=== PATIENT | female | born 1945 | race African-American/Black ===

== ENCOUNTER → 2019-01-11 | Day surgery (SDC) | payer MEDICARE, OTHER ==
[2019-01-07 13:30] LABS: BASOPHILS % 0.5 % (0.0-1.0); EOSINOPHILS # (AUTO) 0.1 (0.0-0.4); EOSINOPHILS % 2.1 % (0.0-6.0); HEMATOCRIT 35.2 % (34.2-44.1); HEMOGLOBIN 10.9 g/dL (12.0-16.0); LYMPHOCYTES # (AUTO) 2.4 (1.0-3.2); LYMPHOCYTES % 40.8 % (18.0-39.1); MEAN CORPUSCULAR HEMOGLOBIN 26.4 pg (28-32); MEAN CORPUSCULAR VOLUME 85.2 fL (81-99); MONOCYTES # (AUTO) 0.6 (0.2-0.8); MONOCYTES % 10.2 % (4.4-11.3); NEUTROPHILS # (AUTO) 2.7 (2.1-6.9); NEUTROPHILS % 46.2 % (38.7-80.0); PLATELET COUNT 195 x10e3/uL (140-360); RED BLOOD COUNT 4.13 x10e6/uL (3.6-5.1); RED CELL DISTRIBUTION WIDTH 16.5 % (11.7-14.4)
[2019-01-07 13:40] LABS: INR 0.9; PROTHROMBIN TIME 12.6 seconds (11.9-14.5)
[2019-01-07 13:41] LABS: PARTIAL THROMBOPLASTIN TIME 27.1 seconds (23.8-35.5)
[2019-01-07 13:48] LABS: ALANINE AMINOTRANSFERASE 6 IU/L (0-55); ALBUMIN 3.7 g/dL (3.5-5.0); ALBUMIN/GLOBULIN RATIO 0.9 (0.8-2.0); ALKALINE PHOSPHATASE 78 IU/L (40-150); ANION GAP 12.2 mmol/L (8-16); BLOOD UREA NITROGEN 15 mg/dL (7-26); BUN/CREATININE RATIO 17 (6-25); CALCIUM 9.7 mg/dL (8.4-10.2); CARBON DIOXIDE 25 mmol/L (22-29); CHLORIDE 105 mmol/L (98-107); CREATININE, SERUM 0.89 mg/dL (0.57-1.11); EST GLOMERULAR FILTRATION RATE > 60 ML/MIN (60-); GLUCOSE 87 mg/dL (74-118); POTASSIUM 4.2 mmol/L (3.5-5.1); SODIUM 138 mmol/L (136-145)
[~2019-01-11] MED LIST: GABAPENTIN800 MG PO; GLUCAGON FOR INJ 1 MG VIAL ONE; LIDOCAINE HCL 2% LOCAL INJ 5 ML SDV VIAL INJ ONE; LISINOPRIL10 MG PO; METOPROLOL SUCC50 MG PO; MORPHINE SULFAT30 M2 PO; MORPHINE SULFATE INJ 10 MG/ML ONE; NORCO 10-325 T1 EACH PO; PANTOPRAZOLE SO40 MG PO; PROMETHAZINE HC25 M1 PO; PROPOFOL IV EMULSION 10 MG/ML 50 ML VIAL ONE; ROPINIROLE HC0.25 MG PO; SEROQUEL25 MG PO; TIZANIDINE HCL4 MG PO; ZOLPIDEM TARTRA10 MG PO
--- OUTSIDE RECORDS SUMMARY | 2019-01-11 09:36 | XMS REPORT | Clinical Summary ---
Author Author YAN[facility] Address Unknown Phone Unavailable Care Team Providers Care Capture Manager Name Role Phone Дмитрий Ann PCP Edwin Ray Unavailable Allergies No Known Allergies Medications End Date Status Medication Sig Dispensed Refills Start Date Active gabapentin (NEURONTIN) Take 300 mg 0 300 MG capsule by mouth 2 (two) times daily. Active oxyCODONE (OXYCONTIN) 10 Take 15 mg by 0 MG 12 hr tablet mouth every 12 (twelve) hours . Active ondansetron (ZOFRAN-ODT) Take 1 tablet 20 tablet 0 4 MG disintegrating (4 mg total) 6 tablet by mouth every 4 (four) hours as needed for Nausea. Active sucralfate (CARAFATE) 100 QID FOR 3 420 mL 0 mg/mL suspension DAYS THEN PRN 6 GI UPSET. Active traMADol (ULTRAM) 50 mg Take 1 tablet 15 tablet 0 tablet (50 mg total) 7 by mouth every 6 (six) hours as needed. Max Daily Amount: 200 mg Active diclofenac 1 % Gel . 0 8 Active ketorolac (ACULAR) 0.5 % . 0 ophthalmic solution 8 Active VITAMIN D2 50,000 unit . 0 capsule 8 Active moxifloxacin (VIGAMOX) . 0 0.5 % ophthalmic solution 8 Active rOPINIRole (REQUIP) 0.25 . 0 MG tablet 8 Active tiZANidine (ZANAFLEX) 2 . 0 MG tablet 8 Active lactulose (CHRONULAC) 20 Take 30 mLs 200 mL 0 gram/30 mL solution (20 g total) 8 by mouth daily. 01/14/2018 Discontinued TiZANidine (ZANAFLEX) 2 Take 2 mg by 0 MG capsule mouth 3 (three) times daily. 01/14/2018 Discontinued promethazine (PHENERGAN) Take 25 mg by 0 25 MG tablet mouth every 6 (six) hours as needed for Nausea. 01/14/2018 Discontinued pregabalin (LYRICA) 75 MG 1 TABLET 3 0 capsule TIMES DAILY. 01/14/2018 Discontinued zolpidem (AMBIEN) 10 mg 1 TABLET AT 0 tablet BEDTIME NEEDED. 01/14/2018 Discontinued metoprolol (TOPROL-XL) 50 . 0 08/31/ MG 24 hr tablet 8 01/14/2018 Discontinued oxyCODONE (ROXICODONE) 15 . 0 09/25/201 MG immediate release 8 tablet 01/14/2018 Discontinued QUEtiapine (SEROQUEL) 100 . 0 201 MG tablet 8 01/14/2018 Discontinued naproxen (NAPROSYN) 500 Take 1 tablet 30 tablet 0 MG tablet (500 mg 8 total) by mouth 2 (two) times daily with breakfast and dinner. 02/14/2018 QUEtiapine (SEROQUEL) 100 Take 1 tablet 30 tablet 0 MG tablet (100 mg 8 total) by mouth daily for 30 days. 01/24/2018 aluminum & magnesium Take 30 mLs 355 mL 0 hydroxide-simethicone by mouth 8 (MAALOX PLUS) 400-400-40 every 6 (six) mg/5 mL suspension hours as needed for up to 10 days. 01/17/2018 cephalexin (KEFLEX) 500 Take 1 9 capsule 0 MG capsule capsule (500 8 mg total) by mouth every 8 (eight) hours for 3 days. 02/14/2018 pantoprazole (PROTONIX) Take 1 tablet 30 tablet 0 40 MG tablet (40 mg total) 8 by mouth daily for 30 days. 02/13/2018 zolpidem (AMBIEN) 5 MG Take 1 tablet 30 tablet 0 tablet (5 mg total) 8 by mouth every night as needed for Insomnia for up to 30 days. Max Daily Amount: 5 mg 02/13/2018 hydrALAZINE (APRESOLINE) Take 1 tablet 50 tablet 0 25 MG tablet (25 mg total) 8 by mouth every 8 (eight) hours as needed (for sbp >160) for up to 30 days. Active Problems Problem Noted Date Syncopal episodes 01/09/2018 Urinary tract infection 01/08/2018 Hematuria 01/08/2018 Febrile illness 01/08/2018 Gastrointestinal hemorrhage, unspecified gastrointestinal hemorrhage type 01/07/2018 Overview: Added automatically from request for surgery [id number] Near syncope 08/19/2015 Closed fracture of rib of left side 04/02/2015 Overview: UPDATED BY ICD10 SNOMED/IMO UPDATES Small bowel obstruction 12/22/2014 Speech abnormality 03/26/2013 Encounters Care Team Description Date Type Specialty Brinda Reynaga CRNA 01/13/2018 Anesthesia Event Crystal Fonseca MD COLONOSCOPY 01/13/2018 Surgery Jania Palm MD Lalani, Suleman, MD Generalized weakness (Primary Dx); Gastrointestinal hemorrhage, unspecified gastrointestinal hemorrhage type; Pyelonephritis; Gross hematuria; Febrile illness 01/07/2018 Hospital General Internal Medicine - Encounter 01/14/2018 after 01/10/2018 Immunizations Name Dates Previously Given Next Due Pneumococcal 03/26/2013 Polysaccharide (Pneumovax) Family History Medical History Relation Name Comments Cancer Father stomach CA Diabetes Mother Kidney disease Mother Relation Name Status Comments Father stomach CA Alive Mother Social History Date Tobacco Use Types Packs/Day Years Used Never Smoker Smokeless Tobacco: Never Used Alcohol Use Drinks/Week oz/Week Comments No Sex Assigned at Date Recorded Not on file Industry Job Start Date Occupation Not on file Not on file Not on file Travel End Travel History Travel Start No recent travel history available. Last Filed Vital Signs Time Taken Vital Sign Reading 01/14/2018 4:38 PM CDT Blood Pressure 135/65 01/14/2018 4:38 PM CDT Pulse 72 01/14/2018 4:38 PM CDT Temperature 37 C (98.6 F) 01/14/2018 4:38 PM CDT Respiratory Rate 18 01/14/2018 4:38 PM CDT Oxygen Saturation 96% 01/14/2018 8:11 AM CDT Inhaled Oxygen 21% Concentration - Weight - - Height - - Body Mass Index - Plan of Treatment Not on file Procedures Comments Procedure Name Priority Date/Time Associated Diagnosis RHYTHM STRIP - SCAN 01/15/2018 1:31 PM CDT RHYTHM STRIP - SCAN 01/15/2018 1:31 PM CDT REPORT OF PROCEDURE - 01/15/2018 ENDOSCOPY SCAN 1:31 PM CDT TISSUE EXAM AP Routine 01/13/2018 11:31 AM CDT COLONOSCOPY 01/13/2018 Gastrointestinal 11:00 AM CDT hemorrhage, unspecified gastrointestinal hemorrhage type (MANUAL DIFFERENTIAL) Routine 01/13/2018 6:51 AM CDT CBC W/PLT COUNT & AUTO Routine 01/13/2018 DIFFERENTIAL 6:51 AM CDT BASIC METABOLIC PANEL (7) Routine 01/13/2018 6:51 AM CDT CBC W/PLT COUNT & AUTO Routine 01/13/2018 DIFFERENTIAL 6:51 AM CDT COLONOSCOPY 01/12/2018 Gastrointestinal 1:30 PM CDT hemorrhage, unspecified gastrointestinal hemorrhage type Special Needs NPO after midmite, consent for Colonoscop y and schedule for 915 am (MANUAL DIFFERENTIAL) Routine 01/12/2018 6:53 AM CDT CBC W/PLT COUNT & AUTO Routine 01/12/2018 DIFFERENTIAL 6:53 AM CDT B-TYPE NATRIURETIC FACTOR Routine 01/12/2018 (BNP) 6:53 AM CDT CBC W/PLT COUNT & AUTO Routine 01/12/2018 DIFFERENTIAL 6:53 AM CDT COMPREHENSIVE METABOLIC Routine 01/12/2018 PANEL 6:53 AM CDT ECHOCARDIOGRAM REPORT - 01/11/2018 SCAN 2:50 PM CDT 2D ECHO W/ DOPPLER Routine 01/11/2018 (CW/PW/COLOR) 12:30 PM CDT (MANUAL DIFFERENTIAL) Routine 01/11/2018 5:15 AM CDT CBC W/PLT COUNT & AUTO Routine 01/11/2018 DIFFERENTIAL 5:15 AM CDT BASIC METABOLIC PANEL (7) Routine 01/11/2018 5:15 AM CDT CBC W/PLT COUNT & AUTO Routine 01/11/2018 DIFFERENTIAL 5:15 AM CDT OCCULT BLOOD, STOOL Routine 01/11/2018 2:29 AM CDT POCT-GLUCOSE METER Routine 01/11/2018 12:25 AM CDT after 01/10/2018 Results * RHYTHM STRIP - SCAN (01/15/2018 1:31 PM CDT) Only the most recent of 2 results within the time period is included. Narrative Performed At * EKG-SCANNED (01/15/2018 1:31 PM CDT) Narrative Performed At * Tissue Exam (01/13/2018 11:31 AM CDT) Case Report Surgical Pathology PacketVideo Report LABORATORY Case: [id number] Authorizing Provider:Crystal Fonseca MD Collected: 01/13/2018 1131 Ordering Location: [address] Med/SurgRe ceived: 01/13/2018 1217 Pathologist: Karon Jimenez MD Specimens: A) - Large Intestine, Colon - Sigmoid B) - Ulcer, rectal DIAGNOSIS A. COLON, SIGMOID, BIOPSY: [place] - COLONIC MUCOSA WITH LABORATORY HYPERPLASTIC CHANGES B. RECTAL ULCER, BIOPSY: - COLONIC MUCOSA WITH MILD HYPERPLASTIC CHANGES - SEPARATE FRAGMENT OF FIBROPURULENT DEBRIS, CONSISTENT WITH ULCER BED Signing Pathologist Direct Phone Line: [phone] CPT Code(s) MG/ew PacketVideo 54617 x2 LABORATORY CLINICAL HISTORY Screening [facility] LABORATORY SPECIMEN SOURCE A. Large intestine colon [place] sigmoid. B. Rectal ulcer LABORATORY GROSS DESCRIPTION Specimen A is received in PacketVideo fixative and designated as LABORATORY "large intestine colon sigmoid", are five pink-springer tissue fragments ranging in size from 0.3 to 0.6 cm in greatest dimension. All tissue fragments are submitted into A1. Specimen B is received in fixative and designated as "ulcer", consists of three pink-springer tissue fragments ranging in size from 0.1 to 0.3 cm in greatest dimension. All tissue fragments are submitted into B1. MG/ew MICROSCOPIC DESCRIPTION A-B. Performed [place] [facility] Gross assessment was [facility] [place] performed at [facility], Department of LABORATORY Pathology, [address] [place] [id number], [facility] [place] performed at [facility] Department of LABORATORY Pathology, [address] [place] [phone], Professional component [facility] [place] was performed at [facility] Department of LABORATORY Pathology, [address] [place] [id number], Specimen Tissue Tissue - Ulcer (morphologic abnormality) Narrative Performed At Performing Organization Address City/State/Zipcode Phone Number [facility] [address] [place] [phone] * Manual Differential (01/13/2018 6:51 AM CDT) Only the most recent of 3 results within the time period is included. % Neutros (manual) 74 % [place] % Lymphs (manual) 17 % [place] [facility] % Monos (manual) 6 % [place] [facility] % Eos (manual) 3 % [facility] # Neutros (manual) 3.92 1.80 - 8.00 K/L [place] # Lymphs (manual) 0.90 (L) 1.48 - 4.50 K/L [place] # Monos (manual) 0.32 0.00 - 1.30 K/L [facility] # Eos (manual) 0.16 0.00 - 0.50 K/L [facility] Total Counted 100 [facility] WBC Morphology Normal [facility] Platelet Morphology Normal [facility] RBC Morphology Normal [facility] Specimen Blood Performing Organization Address City/State/Zipcode Phone Number [facility] [address] [place] [phone] * CBC with platelet count + automated diff (01/13/2018 6:51 AM CDT) Only the most recent of 3 results within the time period is included. WBC 5.3 4.0 - 10.0 K/L [facility] RBC 4.23 4.00 - 5.00 M/L [facility] Hemoglobin 11.0 (L) 12.0 - 15.5 GM/DL [facility] Hematocrit 35.7 (L) 36.0 - 46.0 % [facility] MCV 84.4 82.0 - 99.0 fL [facility] MCH 26.0 (L) 27.0 - 33.0 pg [facility] MCHC 30.8 (L) 32.0 - 36.0 GM/DL [facility] RDW 18.4 (H) 12.0 - 15.0 % [facility] Platelets 286 150 - 430 K/CU MM [facility] MPV 10.7 6.0 - 11.5 fL [facility] nRBC 0 0 - 0 /100 WBC [facility] Specimen Blood Performing Organization Address City/[facility] Phone Number [address] [phone] * Basic Metabolic Panel (01/13/2018 6:51 AM CDT) Only the most recent of 2 results within the time period is included. Sodium 141 135 - 148 meq/L [facility] Potassium 4.0 3.6 - 5.5 meq/L [facility] Chloride 114 (H) 98 - 106 meq/L [facility] CO2 16 (L) 20 - 29 meq/L [facility] BUN 8 (L) 10 - 26 mg/dL [facility] Creatinine 0.79 0.50 - 1.20 mg/dL [facility] Glucose 98 70 - 110 mg/dL [facility] Calcium 9.2 8.5 - 10.5 mg/dL [facility] EGFR 86Comment: ESTIMATED GFR IS mL/min/1.73 sq m [place] NOT ACCURATE CREATININE LABORATORY CLEARANCE IN PREDICTING GLOMERULAR FILTRATION RATE. ESTIMATED GFR IS NOT APPLICABLE FOR DIALYSIS PATIENTS. Specimen Blood Performing Organization Address City/[facility] Phone Number [address] [phone] * B-type Natriuretic Factor (BNP) (01/12/2018 6:53 AM CDT) BNP 226 (H) 0 - 100 pg/mL [facility] Specimen Blood Performing Organization Address City/[facility] Phone Number [address] [place], [place] [phone] * Comprehensive metabolic panel (01/12/2018 6:53 AM CDT) Protein, Total 6.6 6.0 - 8.5 gm/dL [facility] Albumin 3.2 (L) 3.5 - 5.0 g/dL [facility] Alkaline Phosphatase 65 30 - 115 U/L [facility] Total Bilirubin 0.4 0.1 - 1.2 mg/dL [facility] Sodium 142 135 - 148 meq/L [facility] Potassium 3.8 3.6 - 5.5 meq/L [facility] Chloride 113 (H) 98 - 106 meq/L [facility] CO2 19 (L) 20 - 29 meq/L [facility] BUN 12 10 - 26 mg/dL [facility] Creatinine 0.76 0.50 - 1.20 mg/dL [facility] Glucose 94 70 - 110 mg/dL [facility] Calcium 8.8 8.5 - 10.5 mg/dL [facility] AST 10 5 - 40 U/L [facility] ALT 7 5 - 50 U/L [facility] EGFR 90Comment: ESTIMATED GFR IS mL/min/1.73 sq m [place] NOT ACCURATE CREATININE LABORATORY CLEARANCE IN PREDICTING GLOMERULAR FILTRATION RATE. ESTIMATED GFR IS NOT APPLICABLE FOR DIALYSIS PATIENTS. Specimen Blood Performing Organization Address City/State/Zipcode Phone Number [facility] [address] [place], [place] [phone] * ECHOCARDIOGRAM REPORT - SCAN (01/11/2018 2:50 PM CDT) Narrative Performed At * 2D Echo W/Doppler(CW/PW/Color) (01/11/2018 12:30 PM CDT) Ejection Fraction [facility] Specimen Narrative Performed At Transthoracic Echocardiography Report (TTE) [facility] Demographics [facility] Patient NameAMINATA ANDREWSate of Study 01/11/2018 LINDSAY GenderFemale Visit [id number] RaceUnknown Number [id number] Number Date of 1945 Referring Physician Age 72 year(s) Communication Signals Intelligence Sabina Sutton, MD Physicia n Procedure Type of Study TTE procedure:2DECHO W DOPPLER(CW/PW/COLOR) (Routine) Indications:Palpitations. Clinical History arthritis polio stroke htn Height: 60 inches Weight: 60.78 kg (134 lbs) BSA: 1.57 m^2 BMI: 26.17 kg/m^2 HR: 80 bpm BP: 107/71 mmHg Summary NORMAL LV WALL MOTION AND SYSTOLIC FUNCTION. LVEF 55-59%. Normal right ventricle structure and function. Normal size left atrium. Normal right atrium. No evidence of pericardial effusion. Normal aortic valve structure and function. NOT WELL VISUALIZED. Normal mitral valve structure and function. Normal tricuspid valve structure and function. Signature Findings Left VentricleNORMAL LV WALL MOTION AND SYSTOLIC FUNCTION. LVEF 55-59%. Left Atrium Normal size left atrium. Right Ventricle Normal right ventricle structure and function. Right AtriumNormal right atrium. Aortic ValveNormal aortic valve structure and function. Mitral ValveNormal mitral valve structure and function. Tricuspid Valve Normal tricuspid valve structure and function. Pulmonic ValveNOT WELL VISUALIZED. Pericardium No evidence of pericardial effusion. Chambers/Structures Left Ventricle LV Length: 6.35 cm Doppler/Quantitative Measurements Mitral Valve MV Peak E-Wave: 0.46 m/sMV Peak A-Wave: 0.9 m/s E/A Ratio: 0.51 Peak Gradient: 0.83 mmHg MV Pierre. Peak: Aortic Valve Peak Velocity: 1.02 m/sMean Velocity: 0.66 m/s Peak Gradient: 4.13 mmHg Mean Gradient: 2.17 mmHg AV VTI: 18.67 cm AR P1/2t: 614.6 msec Deceleration Time: 2119.4 msec AV DVI: 0.68 LVOT Peak Velocity: 0.88 m/s Peak Gradient: 3.14 mmHg Mean Velocity: 0.51 m/s Mean Gradient: 1.44 mmHg LVOT VTI: 12.75 cm Tricuspid Valve TR Velocity: 2.33 m/s TR Gradient: 21.79 mmHg Procedure Note Interface, External Ris In - 01/11/2018 2:12 PM CDT Transthoracic Echocardiography Report (TTE) Demographics Patient Name KENNETH ANDREWS Date of Study 01/11/2018 LINDSAY Gender Female Visit Number [id number] Race Unknown Room Number I209 Number Date of 1945 Referring Physician Age 72 year(s) Communication Signals Intelligence Sabina Cavanaugh [facility] Interpreting Brittaney Sutton MD Physician Procedure Type of Study TTE procedure:2DECHO W DOPPLER(CW/PW/COLOR) (Routine) Indications:Palpitations. Clinical History arthritis polio stroke htn Height: 60 inches Weight: 60.78 kg (134 lbs) BSA: 1.57 m^2 BMI: 26.17 kg/m^2 HR: 80 bpm BP: 107/71 mmHg Summary NORMAL LV WALL MOTION AND SYSTOLIC FUNCTION. LVEF 55-59%. Normal right ventricle structure and function. Normal size left atrium. Normal right atrium. No evidence of pericardial effusion. Normal aortic valve structure and function. NOT WELL VISUALIZED. Normal mitral valve structure and function. Normal tricuspid valve structure and function. Signature Findings Left Ventricle NORMAL LV WALL MOTION AND SYSTOLIC FUNCTION. LVEF 55-59%. Left Atrium Normal size left atrium. Right Ventricle Normal right ventricle structure and function. Right Atrium Normal right atrium. Aortic Valve Normal aortic valve structure and function. Mitral Valve Normal mitral valve structure and function. Tricuspid Valve Normal tricuspid valve structure and function. Pulmonic Valve NOT WELL VISUALIZED. Pericardium No evidence of pericardial effusion. Chambers/Structures Left Ventricle LV Length: 6.35 cm Doppler/Quantitative Measurements Mitral Valve MV Peak E-Wave: 0.46 m/s MV Peak A-Wave: 0.9 m/s E/A Ratio: 0.51 Peak Gradient: 0.83 mmHg MV Pierre. Peak: Aortic Valve Peak Velocity: 1.02 m/s Mean Velocity: 0.66 m/s Peak Gradient: 4.13 mmHg Mean Gradient: 2.17 mmHg AV VTI: 18.67 cm AR P1/2t: 614.6 msec Deceleration Time: 2119.4 msec AV DVI: 0.68 LVOT Peak Velocity: 0.88 m/s Peak Gradient: 3.14 mmHg Mean Velocity: 0.51 m/s Mean Gradient: 1.44 mmHg LVOT VTI: 12.75 cm Tricuspid Valve TR Velocity: 2.33 m/s TR Gradient: 21.79 mmHg Performing Organization Address City/State/Zipcode Phone Number [facility] * Occult blood, stool (01/11/2018 2:29 AM CDT) Occult blood Positive (A) Negative [facility] Specimen Stool Performing Organization Address City/State/Zipcode Phone Number [facility] [address] [place], [place] [phone] * POC-Glucose meter (01/11/2018 12:25 AM CDT) POC-Glucose Meter 96Comment: TESTED AT [facility] 1317 70 - 110 mg/dL [facility] [address] [facility] [id number] Specimen Blood Performing Organization Address City/State/Zipcode Phone Number [facility] [address] [place] [address] MEDICAL CENTER after 01/10/2018 Insurance Payer Benefit Subscriber ID Type Phone Address Plan / Group MEDICARE MEDICARE A xxxxxxxxxxx Medicare B CIGNA - MGD CARE CIGNA xxxxxxxxxxx HMO/POS HMO/POS/OP EN ACCESS Advance Directives For more information, please contact: [address] [address] Date Inactivated Comments Code Status Date Activated 01/14/2018 8:32 PM Full Code 01/08/2018 3:09 AM This code status was determined by: Patient 08/21/2015 8:08 PM Full Code 08/19/2015 8:24 PM This code status was determined by: Patient 04/04/2015 7:09 PM Full Code 04/03/2015 12:56 AM This code status was determined by: Patient 12/26/2014 9:13 PM Full Code 12/22/2014 9:58 AM This code status was determined by: Patient 03/28/2013 8:18 PM All possible means of support, including: cardiac massage, mechanical ventilation, and defibrillation will be used to support life. Code ONE 03/26/2013 1:05 AM
--- OUTSIDE RECORDS SUMMARY | 2019-01-11 09:36 | XMS REPORT | Clinical Summary ---
Author Author [facility] Address Unknown Phone Unavailable Care Team Providers Care Retail Sales Associate Seasonal Name Role Phone Asked, No Pcp PCP Unavailable Allergies No Known Allergies Medications End Date Status Medication Sig Dispensed Refills Start Date Active gabapentin (NEURONTIN) Take 300 mg 0 300 mg capsule by mouth. Active HYDROcodone-acetaminophen Take 1 tablet 0 (NORCO) 10-325 mg per by mouth 3 9 tablet (three) times a day as needed. Active lisinopril Take 20 mg by 3 (PRINIVIL,ZESTRIL) 20 mg mouth daily. 9 tablet Active morPHINE (MS CONTIN) 15 Take 15 mg by 0 10/06/ MG 12 hr tablet mouth every 9 12 (twelve) hours. Active pantoprazole (PROTONIX) Take 40 mg by 3 40 MG EC tablet mouth daily. 9 Active promethazine (PHENERGAN) Take 25 mg by 0 25 MG tablet mouth every 9 12 (twelve) hours as needed. Active QUEtiapine (SEROquel) 100 Take 100 mg 3 10/31/201 MG tablet by mouth 9 daily. Active sertraline (ZOLOFT) 100 Take 100 mg 2 MG tablet by mouth 9 daily. Active zolpidem (AMBIEN) 10 mg TAKE 1 TABLET 0 tablet BY MOUTH 9 EVERYDAY AT BEDTIME Active metoprolol tartrate Take 50 mg by 0 (LOPRESSOR) 50 mg tablet mouth 2 (two) times a day. Active Problems Problem Noted Date Chronic hepatitis C without hepatic coma 11/26/2018 Essential hypertension 11/26/2018 Late effect of acute polio 11/26/2018 Hx of completed stroke 11/26/2018 History of left hip replacement 11/26/2018 Encounters Care Team Description Date Type Specialty Con Grajeda MD Abnormal liver enzymes (Primary Dx); Chronic hepatitis C without hepatic coma (HCC); Essential hypertension; Late effect of acute polio; Hx of completed stroke; History of left hip replacement 11/26/2018 Office Visit Hepatology after 01/10/2018 Social History Date Tobacco Use Types Packs/Day Years Used Never Assessed Sex Assigned at Date Recorded Not on file Industry Job Start Date Occupation Not on file Not on file Not on file Travel End Travel History Travel Start No recent travel history available. Last Filed Vital Signs Reading Time Taken Comments Vital Sign 189/98 11/26/2018 10:01 AM CDT Blood Pressure 61 11/26/2018 10:01 AM CDT Pulse 36.9 C (98.5 F) 11/26/2018 10:01 AM CDT Temperature - - Respiratory Rate 99% 11/26/2018 10:01 AM CDT Oxygen Saturation - - Inhaled Oxygen Concentration 62.6 kg (138 lb) 11/26/2018 10:01 AM CDT Weight 152.4 cm (5') 11/26/2018 10:01 AM CDT Height 26.95 11/26/2018 10:01 AM CDT Body Mass Index Plan of Treatment Care Team Description Date Type Specialty Con Grajeda MD [address] [address] [phone] 01/12/2019 Office Visit Hepatology Health Maintenance Due Date Last Done Comments COLONOSCOPY SCREENING 07/09/1993 SHINGLES VACCINES (#1) 07/09/1993 65+ PNEUMOCOCCAL VACCINE 07/09/2008 (1 of 2 - PCV13) BREAST CANCER SCREENING 05/25/2011 05/25/2009, 05/08/2009, 05/08/2009 INFLUENZA VACCINE 12/02/2018 Procedures Comments Procedure Name Priority Date/Time Associated Diagnosis HEPATITIS E VIRUS (HEV) Routine 11/26/2018 ANTIBODY (IGG) 11:09 AM CDT HCV RNA (INTERNATIONAL Routine 11/26/2018 UNITS) 11:09 AM CDT HCV QUANTITATIVE PCR Routine 11/26/2018 11:09 AM CDT THYROID STIMULATING Routine 11/26/2018 Abnormal liver enzymes HORMONE 11:09 AM CDT Chronic hepatitis C without hepatic coma (HCC) Essential hypertension Late effect of acute polio Hx of completed stroke History of left hip replacement PROTHROMBIN TIME WITH INR Routine 11/26/2018 Abnormal liver enzymes 11:09 AM CDT Chronic hepatitis C without hepatic coma (HCC) Essential hypertension Late effect of acute polio Hx of completed stroke History of left hip replacement IMMUNOGLOBULIN G, A, M Routine 11/26/2018 Abnormal liver enzymes 11:09 AM CDT Chronic hepatitis C without hepatic coma (HCC) Essential hypertension Late effect of acute polio Hx of completed stroke History of left hip replacement HEPATITIS C GENOTYPE Routine 11/26/2018 Abnormal liver enzymes 11:09 AM CDT Chronic hepatitis C without hepatic coma (HCC) Essential hypertension Late effect of acute polio Hx of completed stroke History of left hip replacement HEPATITIS B SURFACE Routine 11/26/2018 Abnormal liver enzymes ANTIGEN 11:09 AM CDT Chronic hepatitis C without hepatic coma (HCC) Essential hypertension Late effect of acute polio Hx of completed stroke History of left hip replacement HEPATITIS B SURFACE Routine 11/26/2018 Abnormal liver enzymes ANTIBODY 11:09 AM CDT Chronic hepatitis C without hepatic coma (HCC) Essential hypertension Late effect of acute polio Hx of completed stroke History of left hip replacement HEPATITIS B CORE ANTIBODY Routine 11/26/2018 Abnormal liver enzymes TOTAL 11:09 AM CDT Chronic hepatitis C without hepatic coma (HCC) Essential hypertension Late effect of acute polio Hx of completed stroke History of left hip replacement GGT Routine 11/26/2018 Abnormal liver enzymes 11:09 AM CDT Chronic hepatitis C without hepatic coma (HCC) Essential hypertension Late effect of acute polio Hx of completed stroke History of left hip replacement COMPREHENSIVE METABOLIC Routine 11/26/2018 Abnormal liver enzymes PANEL 11:09 AM CDT Chronic hepatitis C without hepatic coma (HCC) Essential hypertension Late effect of acute polio Hx of completed stroke History of left hip replacement CBC WITH PLATELET AND Routine 11/26/2018 Abnormal liver enzymes DIFFERENTIAL 11:09 AM CDT Chronic hepatitis C without hepatic coma (HCC) Essential hypertension Late effect of acute polio Hx of completed stroke History of left hip replacement AMMONIA LEVEL Routine 11/26/2018 Abnormal liver enzymes 11:09 AM CDT Chronic hepatitis C without hepatic coma (HCC) Essential hypertension Late effect of acute polio Hx of completed stroke History of left hip replacement ALPHA FETOPROTEIN Routine 11/26/2018 Abnormal liver enzymes 11:09 AM CDT Chronic hepatitis C without hepatic coma (HCC) Essential hypertension Late effect of acute polio Hx of completed stroke History of left hip replacement after 01/10/2018 Results * Hepatitis E virus (HEV) antibody (IgG) (11/26/2018 11:09 AM CDT) Hepatitis E IgG Negative Negative [facility] Comment: The Hepatitis EIgG assay is a qualitative EIA for the detection of antibodies to Hepatitis E Virus.A result of positive indicates antibodies have been detected. Diagnosis of Hepatitis E Virus infection should be made in conjunction with other clinical signs and symptoms and other laboratory findings.Epidemiologic factors, clinical findings, exposure to endemic regions and other laboratory results should be considered when making a diagnosis. The performance characteristics of this test have been determined by [facility]. It has not been cleared or approved by the U.S. Food and Drug Administration. Results should be used in conjunction with clinical findings, and should not form the sole basis for a diagnosis or treatment decision. Specimen Narrative Performed At Performed at: [facility] [address] [place], [place] [id number] Landfill Grader: Lizbeth Best PhD, Phone:[phone] Performing Organization Address [facility] Phone Number [facility] * HCV RNA (International Units) (11/26/2018 11:09 AM CDT) HCV RNA 16,800,000 IU/mL [facility] (International Units) HCV viral log 7.225 log10 IU/mL [facility] Specimen Narrative Performed At Performed at: [facility] [address] [place], [place] [id number] Landfill Grader: Elizabeth Glover MD, Phone:[phone] Performing Organization Address [facility] Phone Number [facility] * HCV Quantitative PCR (11/26/2018 11:09 AM CDT) [facility] Hepatitis C See Final Results IU/mL [facility] quantitative, PCR Test CommentComment: The [facility] information quantitative range of this assay is 15 IU/mL to 100 million IU/mL. Specimen Narrative Performed At Performed at:[address] [place], [place] [id number] Landfill Grader: Elizabeth Glover MD, Phone:[phone] Performing Organization Address [facility] Phone Number [facility] * Alpha fetoprotein (11/26/2018 11:09 AM CDT) [facility] Alpha 1.7 0.0 - 8.3 ng/mL [facility] fetoprotein Comment: [facility] Electrochemiluminescence Immunoassay (ECLIA) Values obtained with different assay methods or kits cannot be used interchangeably.Results cannot be interpreted as absolute evidence of the presence or absence of malignant disease. This test is not interpretable in females. Specimen Blood Narrative Performed At Performed at:[address] [place], [place] [id number] Landfill Grader: Amado Herrera MD, Phone:[phone] Performing Organization Address [facility] Phone Number [facility] * Hepatitis B core antibody total (11/26/2018 11:09 AM CDT) [facility] Hepatitis B Negative Negative [facility] core total Ab Specimen Blood Narrative Performed At Performed at:[address] [place], [place] [id number] Landfill Grader: Amado Herrera MD, Phone:[phone] Performing Organization Address [facility] Phone Number [facility] * Hepatitis C genotype (11/26/2018 11:09 AM CDT) [facility] Hepatitis C 2b [facility] genotype Please note Comment [facility] Comment: This test was developed and its performance characteristics determined by [facility].It has not been cleared or approved by the U.S. Food and Drug Administration. The FDA has determined that such clearance or approval is not necessary. This test is used for clinical purposes.It should not be regarded as investigational or for research. Specimen Blood Narrative Performed At Performed at:[address] [place], [place] [id number] Landfill Grader: Elizabeth Glover MD, Phone:[phone] Performing Organization Address [facility] Phone Number [facility] * Hepatitis B surface antibody (11/26/2018 11:09 AM CDT) Pathologist [facility] Hepatitis B Non Reactive [facility] surface Ab Comment: No n Reactive: Inconsistent with immunity, less than 10 mIU/mL Re active: Consistent with immunity, grea ter than 9.9 mIU/mL Specimen Blood Narrative Performed At Performed at:[facility] [address] [place], [place] [id number] Landfill Grader: Amado Herrera MD, Phone:[phone] Performing Organization Address [facility] Phone Number [facility] * Hepatitis B surface antigen (11/26/2018 11:09 AM CDT) [facility] Hepatitis B Negative Negative [facility] surface Ag Specimen Blood Narrative Performed At Performed at:[address] [place] [address] [facility] [address] [place], [place] [id number] Landfill Grader: Amado Herrera MD, Phone:[phone] Performing Organization Address [facility] Phone Number [facility] * Prothrombin time with INR (11/26/2018 11:09 AM CDT) [facility] INR 1.0 0.8 - 1.2 [facility] Comment: Reference interval is for non-anticoagulated patients. Suggested INR therapeutic range for Vitamin K antagonist therapy: Standard Dose (moderate intensity therapeutic range): 2.0 - 3.0 Higher intensity therapeutic range 2.5 - 3.5 Prothrombin 10.4 9.1 - 12.0 sec [facility] time Specimen Blood Narrative Performed At Performed at:[facility] [address] [place], [place] [id number] Landfill Grader: Amado Herrera MD, Phone:[phone] Performing Organization Address [facility] Phone Number [facility] * CBC with platelet and differential (11/26/2018 11:09 AM CDT) [facility] WBC 4.1 3.4 - 10.8 x10E3/uL [facility] RBC 4.11 3.77 - 5.28 x10E6/uL [facility] HGB 10.8 (L) 11.1 - 15.9 g/dL [facility] HCT 34.3 34.0 - 46.6 % [facility] MCV 84 79 - 97 fL [facility] MCH 26.3 (L) 26.6 - 33.0 pg [facility] MCHC 31.5 31.5 - 35.7 g/dL [facility] RDW 16.5 (H) 12.3 - 15.4 % [facility] Platelet count 273 150 - 450 x10E3/uL [facility] Neutrophils 46 Not Estab. % [facility] Lymphocytes 44 Not Estab. % [facility] Monocytes 8 Not Estab. % [facility] Eosinophils 2 Not Estab. % [facility] Basophils 0 Not Estab. % [facility] Neutrophils, 1.9 1.4 - 7.0 x10E3/uL [facility] absolute Lymphocytes, 1.8 0.7 - 3.1 x10E3/uL [facility] absolute Monocytes, 0.3 0.1 - 0.9 x10E3/uL [facility] absolute Eosinophils, 0.1 0.0 - 0.4 x10E3/uL [facility] absolute Basophils, 0.0 0.0 - 0.2 x10E3/uL [facility] absolute Immature 0 Not Estab. % [facility] granulocytes Immature grans 0.0 0.0 - 0.1 x10E3/uL [facility] (abs) Specimen Blood Narrative Performed At Performed at: - [id number] Landfill Grader: Amado Herrera MD, Phone:[phone] Performing Organization Address [facility] Phone Number [facility] * Immunoglobulin G, A, M (11/26/2018 11:09 AM CDT) IgG 1,924 (H) 700 - 1,600 mg/dL [facility] IgA 106 64 - 422 mg/dL [facility] IgM 210 26 - 217 mg/dL [facility] Specimen Blood Narrative Performed At Performed at: - [facility] [place], [id number] Landfill Grader: Amado Herrera MD, Phone:[phone] Performing Organization Address [facility] Phone Number [facility] * Thyroid stimulating hormone (11/26/2018 11:09 AM CDT) TSH 0.435 (L) 0.450 - 4.500 uIU/mL [facility] Specimen Blood Narrative Performed At Performed at:[address] [place], [place] [id number] Landfill Grader: Amado Herrera MD, Phone:[phone] Performing Organization Address [facility] Phone Number [facility] * GGT (11/26/2018 11:09 AM CDT) GGT 9 0 - 60 IU/L [facility] Specimen Blood Narrative Performed At Performed at:[address] [place], [place] [id number] Landfill Grader: Amado Herrera MD, Phone:[phone] Performing Organization Address [facility] Phone Number [facility] * Ammonia level (11/26/2018 11:09 AM CDT) Pathologist [facility] Ammonia 122 (HH) 19 - 87 ug/dL [facility] Specimen Blood Narrative Performed At Performed at:[address] [place], [place] [id number] Landfill Grader: Amado Herrera MD, Phone:[phone] Performing Organization Address [facility] Phone Number [facility] * Comprehensive metabolic panel (11/26/2018 11:09 AM CDT) Glucose 91 65 - 99 mg/dL [facility] BUN 19 8 - 27 mg/dL [facility] Creatinine 0.91 0.57 - 1.00 mg/dL [facility] EGFR Non-Afr. 62 >59 mL/min/1.73 [facility] Mauritian EGFR 71 >59 mL/min/1.73 [facility] Mauritian BUN/creatinine 21 12 - 28 [facility] ratio Sodium 141 134 - 144 mmol/L [facility] Potassium 5.2 3.5 - 5.2 mmol/L [facility] Chloride 105 96 - 106 mmol/L [facility] CO2 21 20 - 29 mmol/L [facility] Calcium 9.4 8.7 - 10.3 mg/dL [facility] Protein 7.8 6.0 - 8.5 g/dL [facility] Albumin, S 4.1 3.5 - 4.8 g/dL [facility] Globulin, total 3.7 1.5 - 4.5 g/dL [facility] Albumin/globuli 1.1 (L) 1.2 - 2.2 [facility] n ratio Total bilirubin 0.2 0.0 - 1.2 mg/dL [facility] Alkaline 84 39 - 117 IU/L [facility] phosphatase AST 17 0 - 40 IU/L [facility] ALT 5 0 - 32 IU/L [facility] Specimen Blood Narrative Performed At Performed at: - [facility] [address] [facility], [id number] Landfill Grader: Amado Herrera MD, Phone:[phone] Performing Organization Address City/State/Zipcode Phone Number [facility] after 01/10/2018 Insurance Type Payer Benefit Subscriber ID Effective Phone Address Plan / Dates Group Medicare MEDICARE MEDICARE xxxxxxxxxxx 2008-P VE[place], PART A AND resent [place] B O GANESH ANDERSEN OPEN xxxxxxxxxxx 2016-P ACCESS/NET resent WORK Advance Directives For more information, please contact: [phone] Patient Chassis Wirer Explanation Type Date Recorded Advance Directives, Living Will and Medical Power of Supervisor [place]
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
--- OUTSIDE RECORDS SUMMARY | 2019-01-11 09:36 | XMS REPORT ---
Author [facility] Address Unknown Phone Unavailable Care Team Providers Care Parcel Carrier Name Role Phone GRETA MEZA Unavailable Unavailable JEROME FOSTER Unavailable Unavailable Problems This patient has no known problems. Allergies, Adverse Reactions, Alerts This patient has no known allergies or adverse reactions. Medications This patient has no known medications. Results Test Description Test Time Test Comments Text Results Atomic Results Result Comments TISSUE EXAM 2018-01-14 10:49:00 Surgical Pathology Report Case: [id number] Authorizing Provider: Crystal Fonseca MD Collected: 01/13/2018 1131 Ord ering Location: [address] Med/Surg Received: 01/13/2018 1217 Pathologist: Karon Jimenez MD Specimens: A) - Large Intestine, Colon - Sigmoid B) - Ulcer, rectal A. COLON, SIGMOID, BIOPSY: - COLONIC MUCOSA WITH HYPERPLASTIC CHANGESB. RECTAL ULCER, BIOPSY: - COLONIC MUCOSA WITH MILD HYPERPLASTIC CHANGES - SEPARATE FRAGMENT OF FIBROPURULENT DEBRIS, CONSISTENT WITH ULCER BED Signing Pathologist Direct Phone Line: [phone] signed by Karon Jimenez MD on 01/14/2018 at 10:49 AMMG/[id number] A. Large intestine colon sigmoid. B. Rectal ulcer Specimen A is received in fixative and designated as "large intestine colon sigmoid", are five pink-springer tissue fragments ranging in size from 0.3 to 0.6 cm in greatest dimension. All tissue fragments are submitted into A1.Specimen B is received in fixative and designated as "ulcer", consists of three pink-springer tissue fragments ranging in size from 0.1 to 0.3 cm in greatest dimension. All tissue fragments are submitted into B1. MG/Ari-B. Performed [facility], Department of Pathology, [facility] [place] [address], [facility], [address] [place] [address], [facility], [facility] of [facility], [address] [place] [address], CBC W/PLT COUNT & AUTO DIFFERENTIAL 2018-01-13 07:56:00 WHITE BLOOD CELL COUNT (BEAKER) (test zjxn=701) 5.3 K/ L 4.0-10.0 RED BLOOD CELL COUNT (BEAKER) (test vsuj=892) 4.23 M/ L 4.00-5.00 HEMOGLOBIN (BEAKER) (test yuux=853) 11.0 GM/DL 12.0-15.5 HEMATOCRIT (BEAKER) (test godq=132) 35.7 % 36.0-46.0 MEAN CORPUSCULAR VOLUME (BEAKER) (test weur=361) 84.4 fL 82.0-99.0 MEAN CORPUSCULAR HEMOGLOBIN (BEAKER) (test mbki=449) 26.0 pg 27.0-33.0 MEAN CORPUSCULAR HEMOGLOBIN CONC (BEAKER) (test wbdx=458) 30.8 GM/DL 32.0-36.0 RED CELL DISTRIBUTION WIDTH (BEAKER) (test zbay=415) 18.4 % 12.0-15.0 PLATELET COUNT (BEAKER) (test lmya=266) 286 K/CU MM 150-430 MEAN PLATELET VOLUME (BEAKER) (test oiwe=874) 10.7 fL 6.0-11.5 NUCLEATED RED BLOOD CELLS (BEAKER) (test ukiv=789) 0 /100 WBC 0-0 (MANUAL DIFFERENTIAL)2018-01-13 07:56:00* Test Item Value Reference Range Comments NEUTROPHILS - REL (DIFF) (BEAKER) (test grkf=8789) 74 % LYMPHOCYTES - REL (DIFF) (BEAKER) (test wxgx=7463) 17 % MONOCYTES - REL (DIFF) (BEAKER) (test ltbe=9890) 6 % EOSINOPHILS - REL (DIFF) (BEAKER) (test ugdf=5703) 3 % NEUTROPHILS - ABS (DIFF) (BEAKER) (test tihg=8809) 3.92 K/ L 1.80-8.00 LYMPHOCYTES - ABS (DIFF) (BEAKER) (test nomi=2983) 0.90 K/ L 1.48-4.50 MONOCYTES - ABS (DIFF) (BEAKER) (test zvfh=9790) 0.32 K/ L 0.00-1.30 EOSINOPHILS - ABS (DIFF) (BEAKER) (test hzxl=4124) 0.16 K/ L 0.00-0.50 TOTAL COUNTED (BEAKER) (test camt=1199) 100 WBC MORPHOLOGY (BEAKER) (test gegz=813) Normal PLT MORPHOLOGY (BEAKER) (test nwgy=167) Normal RBC MORPHOLOGY (BEAKER) (test bgmz=396) Normal BASIC METABOLIC [id number] 07:56:00* Test Item Value Reference Range Comments SODIUM (BEAKER) (test aluc=639) 141 meq/L 135-148 POTASSIUM (BEAKER) (test vutd=030) 4.0 meq/L 3.6-5.5 CHLORIDE (BEAKER) (test nmbf=924) 114 meq/L 98-106 CO2 (BEAKER) (test ndni=465) 16 meq/L 20-29 BLOOD UREA NITROGEN (BEAKER) (test bytc=686) 8 mg/dL 10-26 CREATININE (BEAKER) (test klvt=787) 0.79 mg/dL 0.50-1.20 GLUCOSE RANDOM (BEAKER) (test umsh=493) 98 mg/dL 70-110 CALCIUM (BEAKER) (test taga=135) 9.2 mg/dL 8.5-10.5 EGFR (BEAKER) (test viux=6633) 86 mL/min/1.73 sq m ESTIMATED GFR IS NOT ACCURATE CREATININE CLEARANCE IN PREDICTING GLOMERULAR FILTRATION RATE. ESTIMATED GFR IS NOT APPLICABLE FOR DIALYSIS PATIENTS. BLOOD [id number] 01:00:00* Test Item Value Reference Range Comments CULTURE (BEAKER) (test pdqy=0486) No growth in 5 days BLOOD [id number] 01:00:00* Test Item Value Reference Range Comments CULTURE (BEAKER) (test vgyc=6826) No growth in 5 days CBC W/PLT COUNT & AUTO [id number] 08:11:00* Test Item Value Reference Range Comments WHITE BLOOD CELL COUNT (BEAKER) (test gfkx=477) 6.0 K/ L 4.0-10.0 RED BLOOD CELL COUNT (BEAKER) (test obty=166) 4.13 M/ L 4.00-5.00 HEMOGLOBIN (BEAKER) (test ziey=103) 10.7 GM/DL 12.0-15.5 HEMATOCRIT (BEAKER) (test yuzc=687) 34.7 % 36.0-46.0 MEAN CORPUSCULAR VOLUME (BEAKER) (test wcfk=493) 84.0 fL 82.0-99.0 MEAN CORPUSCULAR HEMOGLOBIN (BEAKER) (test trae=517) 25.9 pg 27.0-33.0 MEAN CORPUSCULAR HEMOGLOBIN CONC (BEAKER) (test uxcl=875) 30.8 GM/DL 32.0-36.0 RED CELL DISTRIBUTION WIDTH (BEAKER) (test mufc=927) 18.1 % 12.0-15.0 PLATELET COUNT (BEAKER) (test nfap=584) 276 K/CU MM 150-430 MEAN PLATELET VOLUME (BEAKER) (test dpbg=911) 11.2 fL 6.0-11.5 NUCLEATED RED BLOOD CELLS (BEAKER) (test hwlo=154) 0 /100 WBC 0-0 NEUTROPHILS RELATIVE PERCENT (BEAKER) (test zcxv=077) 59 % LYMPHOCYTES RELATIVE PERCENT (BEAKER) (test vwaf=303) 28 % MONOCYTES RELATIVE PERCENT (BEAKER) (test itdh=323) 11 % EOSINOPHILS RELATIVE PERCENT (BEAKER) (test qely=064) 1 % BASOPHILS RELATIVE PERCENT (BEAKER) (test eoqy=834) 0 % NEUTROPHILS ABSOLUTE COUNT (BEAKER) (test yddy=502) 3.51 K/ L 1.80-8.00 LYMPHOCYTES ABSOLUTE COUNT (BEAKER) (test yzjo=796) 1.67 K/ L 1.48-4.50 MONOCYTES ABSOLUTE COUNT (BEAKER) (test orvu=573) 0.63 K/ L 0.00-1.30 EOSINOPHILS ABSOLUTE COUNT (BEAKER) (test pnuy=156) 0.05 K/ L 0.00-0.50 BASOPHILS ABSOLUTE COUNT (BEAKER) (test dhvx=843) 0.02 K/ L 0.00-0.20 IMMATURE GRANULOCYTES-RELATIVE PERCENT (BEAKER) (test nmwo=2201) 1 % 0-0 (MANUAL DIFFERENTIAL)2018-01-12 08:11:00* Test Item Value Reference Range Comments TOTAL COUNTED (BEAKER) (test uevp=3982) WBC MORPHOLOGY (BEAKER) (test yxwx=497) Normal RBC MORPHOLOGY (BEAKER) (test toms=567) Normal GIANT PLATELETS (BEAKER) (test iufl=019) Present B-TYPE NATRIURETIC FACTOR (BNP)2018-01-12 07:30:00* Test Item Value Reference Range Comments B-TYPE NATRIURETIC PEPTIDE (BEAKER) (test giwx=071) 226 pg/mL 0-100 COMPREHENSIVE METABOLIC [id number] 07:29:00* Test Item Value Reference Range Comments TOTAL PROTEIN (BEAKER) (test xedk=491) 6.6 gm/dL 6.0-8.5 ALBUMIN (BEAKER) (test lxpn=2856) 3.2 g/dL 3.5-5.0 ALKALINE PHOSPHATASE (BEAKER) (test ipqg=742) 65 U/L 30-115 BILIRUBIN TOTAL (BEAKER) (test hckf=865) 0.4 mg/dL 0.1-1.2 SODIUM (BEAKER) (test tmpi=264) 142 meq/L 135-148 POTASSIUM (BEAKER) (test llnt=862) 3.8 meq/L 3.6-5.5 CHLORIDE (BEAKER) (test hwqh=723) 113 meq/L 98-106 CO2 (BEAKER) (test sdkv=485) 19 meq/L 20-29 BLOOD UREA NITROGEN (BEAKER) (test qnyb=790) 12 mg/dL 10-26 CREATININE (BEAKER) (test bbbv=563) 0.76 mg/dL 0.50-1.20 GLUCOSE RANDOM (BEAKER) (test ehsd=144) 94 mg/dL 70-110 CALCIUM (BEAKER) (test tgfi=770) 8.8 mg/dL 8.5-10.5 AST (SGOT) (BEAKER) (test opbh=365) 10 U/L 5-40 ALT (SGPT) (BEAKER) (test kmep=193) 7 U/L 5-50 EGFR (BEAKER) (test kaef=5172) 90 mL/min/1.73 sq m ESTIMATED GFR IS NOT ACCURATE CREATININE CLEARANCE IN PREDICTING GLOMERULAR FILTRATION RATE. ESTIMATED GFR IS NOT APPLICABLE FOR DIALYSIS PATIENTS. (MANUAL DIFFERENTIAL)2018-01-11 08:24:00* Test Item Value Reference Range Comments NEUTROPHILS - REL (DIFF) (BEAKER) (test rrde=5940) 65 % LYMPHOCYTES - REL (DIFF) (BEAKER) (test kyty=5896) 21 % MONOCYTES - REL (DIFF) (BEAKER) (test czvq=3520) 11 % EOSINOPHILS - REL (DIFF) (BEAKER) (test uzto=2224) 1 % BANDS - REL (DIFF) (BEAKER) (test judy=1268) 2 % 0-10 NEUTROPHILS - ABS (DIFF) (BEAKER) (test lkkj=5889) 5.01 K/ L 1.80-8.00 LYMPHOCYTES - ABS (DIFF) (BEAKER) (test hrcf=8732) 1.62 K/ L 1.48-4.50 MONOCYTES - ABS (DIFF) (BEAKER) (test zcfr=5812) 0.85 K/ L 0.00-1.30 EOSINOPHILS - ABS (DIFF) (BEAKER) (test nxqa=4915) 0.08 K/ L 0.00-0.50 BANDS-ABS (DIFF) (BEAKER) (test auhy=8588) 0.2 K/ L 0.0-0.8 TOTAL COUNTED (BEAKER) (test gtam=2452) 100 BANDS + SEGMENTED NEUTROPHILS (BEAKER) (test cawq=4541) 5.16 RBC MORPHOLOGY (BEAKER) (test odzm=387) Normal DOHLE BODIES (BEAKER) (test sdti=387) Present LARGE PLT(BEAKER) (test arps=0543) Present GIANT PLATELETS (BEAKER) (test qqch=217) Present BASIC METABOLIC [id number] 05:56:00* Test Item Value Reference Range Comments SODIUM (BEAKER) (test xwla=726) 139 meq/L 135-148 POTASSIUM (BEAKER) (test nuqi=251) 3.4 meq/L 3.6-5.5 CHLORIDE (BEAKER) (test hvka=725) 113 meq/L 98-106 CO2 (BEAKER) (test xchu=307) 19 meq/L 20-29 BLOOD UREA NITROGEN (BEAKER) (test dvba=944) 14 mg/dL 10-26 CREATININE (BEAKER) (test cqrb=134) 0.78 mg/dL 0.50-1.20 GLUCOSE RANDOM (BEAKER) (test vecz=875) 93 mg/dL 70-110 CALCIUM (BEAKER) (test hmui=931) 8.2 mg/dL 8.5-10.5 EGFR (BEAKER) (test ptvq=7232) 88 mL/min/1.73 sq m ESTIMATED GFR IS NOT ACCURATE CREATININE CLEARANCE IN PREDICTING GLOMERULAR FILTRATION RATE. ESTIMATED GFR IS NOT APPLICABLE FOR DIALYSIS PATIENTS. CBC W/PLT COUNT & AUTO [id number] 05:38:00* Test Item Value Reference Range Comments WHITE BLOOD CELL COUNT (BEAKER) (test ouyq=993) 7.7 K/ L 4.0-10.0 RED BLOOD CELL COUNT (BEAKER) (test nafz=029) 3.83 M/ L 4.00-5.00 HEMOGLOBIN (BEAKER) (test uukt=540) 9.9 GM/DL 12.0-15.5 HEMATOCRIT (BEAKER) (test llum=266) 32.4 % 36.0-46.0 MEAN CORPUSCULAR VOLUME (BEAKER) (test ifzs=541) 84.6 fL 82.0-99.0 MEAN CORPUSCULAR HEMOGLOBIN (BEAKER) (test xaer=907) 25.8 pg 27.0-33.0 MEAN CORPUSCULAR HEMOGLOBIN CONC (BEAKER) (test psgc=366) 30.6 GM/DL 32.0-36.0 RED CELL DISTRIBUTION WIDTH (BEAKER) (test tuhz=145) 18.0 % 12.0-15.0 PLATELET COUNT (BEAKER) (test gbcg=798) 223 K/CU MM 150-430 MEAN PLATELET VOLUME (BEAKER) (test amtl=511) 11.6 fL 6.0-11.5 NUCLEATED RED BLOOD CELLS (BEAKER) (test aona=339) 0 /100 WBC 0-0 OCCULT BLOOD, [id number] 03:10:00* Test Item Value Reference Range Comments FECAL OCCULT BLOOD (BEAKER) (test mczx=448) Positive Negative POCT-GLUCOSE [id number] 00:32:00* Test Item Value Reference Range Comments POC-GLUCOSE METER (BEAKER) (test bisp=3505) 96 mg/dL 70-110 TESTED AT [facility] [address] [place] [address] POCT-GLUCOSE [id number] 12:00:00* Test Item Value Reference Range Comments POC-GLUCOSE METER (BEAKER) (test apqi=3721) 143 mg/dL 70-110 TESTED AT [facility] [address] [facility] [address] BASIC METABOLIC [id number] 06:12:00* Test Item Value Reference Range Comments SODIUM (BEAKER) (test qqtk=484) 136 meq/L 135-148 POTASSIUM (BEAKER) (test vzeg=403) 4.1 meq/L 3.6-5.5 Specimen moderately hemolyzed CHLORIDE (BEAKER) (test fhbf=181) 112 meq/L 98-106 CO2 (BEAKER) (test hltd=996) 16 meq/L 20-29 BLOOD UREA NITROGEN (BEAKER) (test tejz=606) 32 mg/dL 10-26 CREATININE (BEAKER) (test gimi=101) 1.40 mg/dL 0.50-1.20 Specimen moderately hemolyzed GLUCOSE RANDOM (BEAKER) (test dldx=432) 90 mg/dL 70-110 CALCIUM (BEAKER) (test lblq=239) 7.8 mg/dL 8.5-10.5 EGFR (BEAKER) (test qdxz=5068) 45 mL/min/1.73 sq m ESTIMATED GFR IS NOT ACCURATE CREATININE CLEARANCE IN PREDICTING GLOMERULAR FILTRATION RATE. ESTIMATED GFR IS NOT APPLICABLE FOR DIALYSIS PATIENTS. CBC W/PLT COUNT & AUTO [id number] 06:06:00* Test Item Value Reference Range Comments WHITE BLOOD CELL COUNT (BEAKER) (test htpe=092) 9.2 K/ L 4.0-10.0 RED BLOOD CELL COUNT (BEAKER) (test yord=833) 3.27 M/ L 4.00-5.00 HEMOGLOBIN (BEAKER) (test ixrl=713) 8.8 GM/DL 12.0-15.5 HEMATOCRIT (BEAKER) (test wtla=453) 29.4 % 36.0-46.0 MEAN CORPUSCULAR VOLUME (BEAKER) (test ifsi=638) 89.9 fL 82.0-99.0 MEAN CORPUSCULAR HEMOGLOBIN (BEAKER) (test mjtb=311) 26.9 pg 27.0-33.0 MEAN CORPUSCULAR HEMOGLOBIN CONC (BEAKER) (test xbet=199) 29.9 GM/DL 32.0-36.0 RED CELL DISTRIBUTION WIDTH (BEAKER) (test qqzm=792) 18.5 % 12.0-15.0 PLATELET COUNT (BEAKER) (test xhkf=354) 134 K/CU MM 150-430 No clot detected MEAN PLATELET VOLUME (BEAKER) (test uuzb=993) 11.1 fL 6.0-11.5 NUCLEATED RED BLOOD CELLS (BEAKER) (test dbwv=596) 0 /100 WBC 0-0 NEUTROPHILS RELATIVE PERCENT (BEAKER) (test ptpy=622) 74 % LYMPHOCYTES RELATIVE PERCENT (BEAKER) (test wtmk=087) 16 % MONOCYTES RELATIVE PERCENT (BEAKER) (test ipta=526) 9 % EOSINOPHILS RELATIVE PERCENT (BEAKER) (test haxk=200) 0 % BASOPHILS RELATIVE PERCENT (BEAKER) (test yfxk=876) 0 % NEUTROPHILS ABSOLUTE COUNT (BEAKER) (test slih=751) 6.85 K/ L 1.80-8.00 LYMPHOCYTES ABSOLUTE COUNT (BEAKER) (test oyef=532) 1.45 K/ L 1.48-4.50 MONOCYTES ABSOLUTE COUNT (BEAKER) (test vwhl=170) 0.81 K/ L 0.00-1.30 EOSINOPHILS ABSOLUTE COUNT (BEAKER) (test ewvw=461) 0.01 K/ L 0.00-0.50 BASOPHILS ABSOLUTE COUNT (BEAKER) (test qboj=809) 0.02 K/ L 0.00-0.20 IMMATURE GRANULOCYTES-RELATIVE PERCENT (BEAKER) (test trmg=2489) 1 % 0-0 (MANUAL DIFFERENTIAL)2018-01-09 06:06:00* Test Item Value Reference Range Comments NEUTROPHILS - REL (DIFF) (BEAKER) (test ugfl=0064) 68 % LYMPHOCYTES - REL (DIFF) (BEAKER) (test sjac=4160) 25 % MONOCYTES - REL (DIFF) (BEAKER) (test gxwx=3334) 6 % BANDS - REL (DIFF) (BEAKER) (test xmhb=6966) 1 % 0-10 NEUTROPHILS - ABS (DIFF) (BEAKER) (test ioxx=3967) 6.26 K/ L 1.80-8.00 LYMPHOCYTES - ABS (DIFF) (BEAKER) (test zvgu=8506) 2.30 K/ L 1.48-4.50 MONOCYTES - ABS (DIFF) (BEAKER) (test vfvc=3755) 0.55 K/ L 0.00-1.30 BANDS-ABS (DIFF) (BEAKER) (test ubhw=6374) 0.1 K/ L 0.0-0.8 TOTAL COUNTED (BEAKER) (test movz=0632) 100 BANDS + SEGMENTED NEUTROPHILS (BEAKER) (test ddll=6132) 6.35 MANUAL NRBC PER 100 CELLS (BEAKER) (test pagd=9951) 1 /100 WBC 0-0 WBC MORPHOLOGY (BEAKER) (test dita=158) Normal LARGE PLT(BEAKER) (test eowm=8628) Present ANISOCYTOSIS (BEAKER) (test xbec=054) 1+ few HYPOCHROMIA (BEAKER) (test icql=333) 1+ few U/S, RENAL, [id number] 02:54:00Reason for exam:->AKIFINAL REPORT Renal ultrasound dated 01/08/2018 CLINICAL HISTORY: Acute kidney insufficiency COMPARISON: None Comment: Real-time transabdominal renal ultrasound was performed. Right kidney measures 9.6 x 3.8 x 5.0 cm. Left kidney measures 10.0 x 4.4 x 4.6 cm. Right renal cortex measures 1.0 cm. Left renal cortex measures 1.3 cm. Renal parenchymal echogenicity: Elevated. No hydronephrosis, nephrolithiasis or solid mass is seen. 2.1 x 1.5 x 1.4 cm cyst in the right kidney. Doppler ultrasound demonstrates a patent main renal artery and vein bilaterally. The bladder is unremarkable. Impression: Mildly elevated renal parenchymal echogenicity, a nonspecific finding often associated with medical renal disease. Right renal cyst. Signed: Sarmad Vigil MDReport Verified Date/Time: 01/09/2018 02:54:47 Reading Location: [address] -GLUCOSE [id number] 21:39:00* Test Item Value Reference Range Comments POC-GLUCOSE METER (BEAKER) (test nhja=5061) 159 mg/dL 70-110 TESTED AT [address] [address] CBC W/PLT COUNT & AUTO [id number] 04:51:00* Test Item Value Reference Range Comments WHITE BLOOD CELL COUNT (BEAKER) (test lguy=364) 8.7 K/ L 4.0-10.0 RED BLOOD CELL COUNT (BEAKER) (test qzrj=254) 4.33 M/ L 4.00-5.00 HEMOGLOBIN (BEAKER) (test mhto=649) 11.2 GM/DL 12.0-15.5 HEMATOCRIT (BEAKER) (test lqea=300) 37.2 % 36.0-46.0 MEAN CORPUSCULAR VOLUME (BEAKER) (test opfx=744) 85.9 fL 82.0-99.0 MEAN CORPUSCULAR HEMOGLOBIN (BEAKER) (test zvnq=793) 25.9 pg 27.0-33.0 MEAN CORPUSCULAR HEMOGLOBIN CONC (BEAKER) (test jfry=488) 30.1 GM/DL 32.0-36.0 RED CELL DISTRIBUTION WIDTH (BEAKER) (test zpev=830) 18.2 % 12.0-15.0 PLATELET COUNT (BEAKER) (test lifx=071) 211 K/CU MM 150-430 MEAN PLATELET VOLUME (BEAKER) (test zxhh=797) 10.7 fL 6.0-11.5 NUCLEATED RED BLOOD CELLS (BEAKER) (test fndk=834) 0 /100 WBC 0-0 NEUTROPHILS RELATIVE PERCENT (BEAKER) (test ubjq=994) 75 % LYMPHOCYTES RELATIVE PERCENT (BEAKER) (test gmrk=257) 12 % MONOCYTES RELATIVE PERCENT (BEAKER) (test lueg=320) 12 % EOSINOPHILS RELATIVE PERCENT (BEAKER) (test uoof=870) 0 % BASOPHILS RELATIVE PERCENT (BEAKER) (test fwcw=067) 0 % NEUTROPHILS ABSOLUTE COUNT (BEAKER) (test hete=107) 6.55 K/ L 1.80-8.00 LYMPHOCYTES ABSOLUTE COUNT (BEAKER) (test vikk=828) 1.05 K/ L 1.48-4.50 MONOCYTES ABSOLUTE COUNT (BEAKER) (test buwh=950) 1.03 K/ L 0.00-1.30 EOSINOPHILS ABSOLUTE COUNT (BEAKER) (test gqly=628) 0.00 K/ L 0.00-0.50 BASOPHILS ABSOLUTE COUNT (BEAKER) (test znne=223) 0.01 K/ L 0.00-0.20 IMMATURE GRANULOCYTES-RELATIVE PERCENT (BEAKER) (test zvmm=9227) 1 % 0-0 LACTIC ACID, VENOUS, WHOLE [id number] 03:26:00* Test Item Value Reference Range Comments LACTATE BLOOD VENOUS (2) (BEAKER) (test jknb=2297) 2.2 mmol/L 0.5-2.2 Effective 09/05/2015: Units/Reference Range ChangeNew: 0.5-2.2 mmol/L Previous: 5 -18 mg/dLCT, [id number] 01:49:00Reason for exam:->GENERALIZED WEAKNESS, NOT ASSOCIATED WITH EXTREMITIESReason for exam:->RECTAL BLEEDINGWhat is the patient's sedation requirement?->No SedationFINAL REPORT CT, ABDOMEN \\T\\ PELVIS, WITHOUT IV CONTRAST INDICATION: HematuriaGENERALIZED WEAKNESS, NOT ASSOCIATED WITH EXTREMITIESRECTAL BLEEDING COMPARISON: April 08, 2016 TECHNIQUE: CT of the abdomen and pelvis WITHOUT intravenous contrast. DOSE REDUCTION: Dose modulation, iterative reconstruction, and/or weight-based adjustment of the mA/kV was utilized to reduce the radiation dose to as low as reasonably achievable. FINDINGS:NOTE: Absence of intravenous contrast decreases sensitivity for focal lesions and vascular pathology. Lower thorax: Unremarkable Liver: No parenchymal abnormality.Gallbladder and biliary tree: No ductal dilation. Cholecystectomy. Compensatory prominence of the common bile duct.Pancreas: No acute findings.Spleen: No acute findingsAdrenal Glands: No acute findings.Kidneys and ureters: No hydronephrosis or nephrolithiasis.Bladder and reproductive organs: Unremarkable. 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 Moderate to large colonic stool burden. No pneumatosis.Appendix: The appendix is not identified. No pericecal inflammatory changes are present. Major vascular structures: Normal aortic caliber.Peritoneum and retroperitoneum: No free air, fluid or adenopathy. Skeleton: Diffuse demineralization. Multilevel degenerative changes. Spinal stimulation hardware enters the thecal sac at T9-10. Posterior stabilization and interbody spacer at L4-5 with gross pr eservation of alignment.Additional findings: Marked asymmetric muscular atrophy in the left pelvic girdle. IMPRESSION: Limited noncontrast evaluation revealing no acute abnormality in the abdomen or pelvis to explain the provided symptom p icture. Signed: JR Decker Robert MDReport Verified Date/Time: 8 01:49:48 Reading Location: [facility] B1 C013Y CT Body Reading Room C METABOLIC PANEL 2018-01-07 23:23:00* Test Item Value Reference Range Comments SODIUM (BEAKER) (test qooa=726) 141 meq/L 135-148 POTASSIUM (BEAKER) (test orgf=099) 4.3 meq/L 3.6-5.5 CHLORIDE (BEAKER) (test wbub=860) 108 meq/L 98-106 CO2 (BEAKER) (test pqai=209) 19 meq/L 20-29 BLOOD UREA NITROGEN (BEAKER) (test nuzx=035) 24 mg/dL 10-26 CREATININE (BEAKER) (test oefs=953) 1.64 mg/dL 0.50-1.20 GLUCOSE RANDOM (BEAKER) (test zbji=255) 129 mg/dL 70-110 CALCIUM (BEAKER) (test nbok=252) 8.8 mg/dL 8.5-10.5 EGFR (BEAKER) (test fbgc=9870) 37 mL/min/1.73 sq m ESTIMATED GFR IS NOT ACCURATE CREATININE CLEARANCE IN PREDICTING GLOMERULAR FILTRATION RATE. ESTIMATED GFR IS NOT APPLICABLE FOR DIALYSIS PATIENTS. LACTIC ACID, VENOUS, WHOLE [id number] 23:20:00* Test Item Value Reference Range Comments LACTATE BLOOD VENOUS (2) (BEAKER) (test dpdi=1044) 2.6 mmol/L 0.5-2.2 Specimen slightly hemolyzed Effective 09/05/2015: Units/Reference Range ChangeNew: 0.5-2.2 mmol/L Previous: 5 -18 mg/dLCBC W/PLT COUNT & AUTO [id number] 23:04:00* Test Item Value Reference Range Comments WHITE BLOOD CELL COUNT (BEAKER) (test ytnu=124) 11.0 K/ L 4.0-10.0 RED BLOOD CELL COUNT (BEAKER) (test mwbz=731) 4.41 M/ L 4.00-5.00 HEMOGLOBIN (BEAKER) (test izug=900) 11.5 GM/DL 12.0-15.5 HEMATOCRIT (BEAKER) (test qxus=180) 38.4 % 36.0-46.0 MEAN CORPUSCULAR VOLUME (BEAKER) (test bvee=841) 87.1 fL 82.0-99.0 MEAN CORPUSCULAR HEMOGLOBIN (BEAKER) (test vtco=042) 26.1 pg 27.0-33.0 MEAN CORPUSCULAR HEMOGLOBIN CONC (BEAKER) (test sqfz=782) 29.9 GM/DL 32.0-36.0 RED CELL DISTRIBUTION WIDTH (BEAKER) (test ukyg=828) 18.3 % 12.0-15.0 PLATELET COUNT (BEAKER) (test tyes=812) 143 K/CU MM 150-430 MEAN PLATELET VOLUME (BEAKER) (test yuac=217) 11.3 fL 6.0-11.5 NUCLEATED RED BLOOD CELLS (BEAKER) (test uzvs=664) 0 /100 WBC 0-0 NEUTROPHILS RELATIVE PERCENT (BEAKER) (test lpfg=590) 83 % LYMPHOCYTES RELATIVE PERCENT (BEAKER) (test gpmd=998) 8 % MONOCYTES RELATIVE PERCENT (BEAKER) (test fnxk=389) 8 % EOSINOPHILS RELATIVE PERCENT (BEAKER) (test soet=015) 0 % BASOPHILS RELATIVE PERCENT (BEAKER) (test nzex=640) 0 % NEUTROPHILS ABSOLUTE COUNT (BEAKER) (test bgnm=342) 9.14 K/ L 1.80-8.00 LYMPHOCYTES ABSOLUTE COUNT (BEAKER) (test kzlb=675) 0.92 K/ L 1.48-4.50 MONOCYTES ABSOLUTE COUNT (BEAKER) (test kmwm=483) 0.90 K/ L 0.00-1.30 EOSINOPHILS ABSOLUTE COUNT (BEAKER) (test pqar=541) 0.00 K/ L 0.00-0.50 BASOPHILS ABSOLUTE COUNT (BEAKER) (test sjmg=390) 0.02 K/ L 0.00-0.20 IMMATURE GRANULOCYTES-RELATIVE PERCENT (BEAKER) (test husq=5957) 1 % 0-0 URINALYSIS W/ [id number] 21:25:00* Test Item Value Reference Range Comments COLOR (BEAKER) (test uxmu=779) Red CLARITY (BEAKER) (test qfgq=740) Cloudy SPECIFIC GRAVITY UA (BEAKER) (test jcdp=758) 1.015 1.001-1.035 PH UA (BEAKER) (test pjtv=551) 7.5 5.0-8.0 PROTEIN UA (BEAKER) (test ktrf=915) >=300 mg/dL Negative GLUCOSE UA (BEAKER) (test amqq=272) Negative Negative KETONES UA (BEAKER) (test irbu=394) Negative Negative BILIRUBIN UA (BEAKER) (test uead=289) Positive Negative BLOOD UA (BEAKER) (test fetv=839) Large Negative NITRITE UA (BEAKER) (test zsga=406) Positive Negative LEUKOCYTE ESTERASE UA (BEAKER) (test wvaf=348) Large Negative UROBILINOGEN UA (BEAKER) (test yqvz=561) 0.2 mg/dL 0.2-1.0 BACTERIA (BEAKER) (test jrpl=061) Moderate MUCUS (BEAKER) (test ahic=7634) Occasional RBC UA-MANUAL (BEAKER) (test wdoc=5743) >100 /HPF WBC UA-MANUAL (BEAKER) (test gzyv=6787) >100 /HPF SQUAMOUS EPITHELIAL MANUAL (BEAKER) (test dmgt=0012) <5 /HPF SOURCE(BEAKER) (test wlfb=8213) RAD, SHOULDER, COMPLETE (MIN 2 VIEWS), [id number] 15:56:00Reason for exam:- >FALLFINAL REPORT TECHNIQUE: Internal/external rotation and scapular-Y views of the right shoulder. INDICATION: 72-year-old woman after fall. COMPARISON: Right shoulder radiographs 04/06/2012. FINDINGS:No acute fractures or dislocations.Prior shoulder arthroplasty. Hardware appears intact and in expected position.Visualized right lung is clear.Soft tissues are grossly unremarkable. IMPRESSION:No acute osseous abnormalities of the right shoulder. Signed: Fred Okeefe MDReport Verified Date/Time: 10/17/2017 15:56:05 Reading Location: [facility] C013Y CT Body Reading Room , KNEE, 3 VIEWS, RIGHT 2017-10-17 15:54:00Reason for exam:->FALLFINAL REPORT TECHNIQUE: Frontal, oblique, and lateral views of the right knee. INDICATION: 72-year-old woman after fall. COMPARISON: None. FINDINGS:No acute fractures or dislocations.Prior knee arthroplasty. Hardware appears intact and in expected position.Partially visualized intramedullary caren-interlocking screw construct in the distal femur. Visualized hardware appears intact.Soft tissues are grossly unremarkable. IMPRESSION:No acute osseous abnormalities of the right knee. Signed: Fred Okeefeort Verified Date/Time: 10/17/2017 15:54:25 Reading Location: [address] Body Reading Room , ELBOW, 3 VIEWS, RIGHT 2017-10-17 15:52:00Reason for exam:->FALLFINAL REPORT TECHNIQUE: Frontal, oblique, and lateral views of the right elbow. INDICATION: 72-year-old woman after fall. COMPARISON: None. FINDINGS:No acute fractures or dislocations.Joint spaces are within normal limits.Skin folds project over the elbow joint on frontal view. IMPRESSION:No acute osseous abnormalities of the right elbow. Signed: Fred Okeefe Verified Date/Time: 10/17/2017 15:52:34 Reading Location: [facility] C013Y CT Body Reading Room ALYSIS W/ REFLEX URINE [id number] 00:50:00* Test Item Value Reference Range Comments COLOR (BEAKER) (test izsy=336) Yellow CLARITY (BEAKER) (test myzx=400) Clear SPECIFIC GRAVITY UA (BEAKER) (test loxa=652) >= 1.001-1.035 PH UA (BEAKER) (test bsdg=413) 5.0 5.0-8.0 PROTEIN UA (BEAKER) (test qgbr=554) Trace Negative GLUCOSE UA (BEAKER) (test xczb=171) Negative Negative KETONES UA (BEAKER) (test zmas=372) Trace Negative BILIRUBIN UA (BEAKER) (test najv=219) Positive Negative BLOOD UA (BEAKER) (test bcee=770) Negative Negative NITRITE UA (BEAKER) (test vbau=632) Negative Negative LEUKOCYTE ESTERASE UA (BEAKER) (test ryar=473) Negative Negative UROBILINOGEN UA (BEAKER) (test dqgz=624) 0.2 mg/dL 0.2-1.0 BACTERIA (BEAKER) (test ezns=979) Occasional MUCUS (BEAKER) (test lfnw=2368) Many RBC UA-MANUAL (BEAKER) (test dofn=2302) <5 /HPF WBC UA-MANUAL (BEAKER) (test jhud=5608) <5 /HPF SQUAMOUS EPITHELIAL MANUAL (BEAKER) (test erud=0117) 5-10 /HPF HYALINE CASTS MANUAL (BEAKER) (test mlmq=0672) 0-5 /LPF SOURCE(BEAKER) (test zegd=3702) CREATINE KINASE (CK), TOTAL AND [id number] 00:00:00* Test Item Value Reference Range Comments CREATINE KINASE TOTAL (BEAKER) (test siko=518) 290 U/L 25-235 CREATINE KINASE-MB (BEAKER) (test wqkd=177) 3.2 ng/mL 0.0-4.9 CREATINE KINASE-MB INDEX (BEAKER) (test eqea=284) 1.1 % CK-MB Reference Range:<5 Normal5-10 Borderline>10 AbnormalHEPATIC FUNCTION [id number] 23:54:00* Test Item Value Reference Range Comments TOTAL PROTEIN (BEAKER) (test erea=018) 7.8 gm/dL 6.0-8.5 ALBUMIN (BEAKER) (test znjj=0209) 3.9 g/dL 3.5-5.0 BILIRUBIN TOTAL (BEAKER) (test wovt=884) 0.4 mg/dL 0.1-1.2 BILIRUBIN DIRECT (BEAKER) (test inzd=965) 0.2 mg/dL 0.0-0.4 ALKALINE PHOSPHATASE (BEAKER) (test xmpk=913) 106 U/L 30-115 AST (SGOT) (BEAKER) (test scow=570) 20 U/L 5-40 ALT (SGPT) (BEAKER) (test cawc=052) 12 U/L 5-50 BASIC METABOLIC [id number] 23:51:00* Test Item Value Reference Range Comments SODIUM (BEAKER) (test tdwc=424) 140 meq/L 135-148 POTASSIUM (BEAKER) (test ztum=313) 4.1 meq/L 3.6-5.5 CHLORIDE (BEAKER) (test moep=976) 110 meq/L 98-106 CO2 (BEAKER) (test doaq=309) 21 meq/L 20-29 BLOOD UREA NITROGEN (BEAKER) (test derp=879) 29 mg/dL 10-26 CREATININE (BEAKER) (test hqti=510) 1.30 mg/dL 0.50-1.20 GLUCOSE RANDOM (BEAKER) (test nbej=424) 88 mg/dL 70-110 CALCIUM (BEAKER) (test ieom=811) 9.3 mg/dL 8.5-10.5 EGFR (BEAKER) (test apcs=4030) 49 mL/min/1.73 sq m ESTIMATED GFR IS NOT ACCURATE CREATININE CLEARANCE IN PREDICTING GLOMERULAR FILTRATION RATE. ESTIMATED GFR IS NOT APPLICABLE FOR DIALYSIS PATIENTS. CBC W/PLT COUNT & AUTO [id number] 23:41:00* Test Item Value Reference Range Comments WHITE BLOOD CELL COUNT (BEAKER) (test tpnd=803) 6.9 K/ L 4.0-10.0 RED BLOOD CELL COUNT (BEAKER) (test ksef=195) 4.29 M/ L 4.00-5.00 HEMOGLOBIN (BEAKER) (test qtoj=254) 11.9 GM/DL 12.0-15.0 HEMATOCRIT (BEAKER) (test tgws=054) 36.5 % 36.0-45.0 MEAN CORPUSCULAR VOLUME (BEAKER) (test bxcy=767) 85.1 fL 82.0-99.0 MEAN CORPUSCULAR HEMOGLOBIN (BEAKER) (test pscz=172) 27.6 pg 27.0-33.0 MEAN CORPUSCULAR HEMOGLOBIN CONC (BEAKER) (test zler=977) 32.5 GM/DL 32.0-36.0 RED CELL DISTRIBUTION WIDTH (BEAKER) (test otnj=728) 14.2 % 10.3-14.2 PLATELET COUNT (BEAKER) (test ikmp=280) 163 K/CU MM 150-430 MEAN PLATELET VOLUME (BEAKER) (test olro=498) 9.7 fL 6.5-10.5 NEUTROPHILS RELATIVE PERCENT (BEAKER) (test awvz=840) 57 % LYMPHOCYTES RELATIVE PERCENT (BEAKER) (test gtie=066) 32 % MONOCYTES RELATIVE PERCENT (BEAKER) (test rlfu=767) 8 % EOSINOPHILS RELATIVE PERCENT (BEAKER) (test xycl=757) 2 % BASOPHILS RELATIVE PERCENT (BEAKER) (test cpzy=090) 1 % NEUTROPHILS ABSOLUTE COUNT (BEAKER) (test chgc=233) 4.00 K/ L 1.80-8.00 LYMPHOCYTES ABSOLUTE COUNT (BEAKER) (test yzlv=739) 2.20 K/ L 1.48-4.50 MONOCYTES ABSOLUTE COUNT (BEAKER) (test ttwp=833) 0.50 K/ L 0.00-1.30 EOSINOPHILS ABSOLUTE COUNT (BEAKER) (test ufkk=223) 0.10 K/ L 0.00-0.50 BASOPHILS ABSOLUTE COUNT (BEAKER) (test isdm=973) 0.10 K/ L 0.00-0.20 RAD, FOOT, MIN 3 VIEWS, [id number] 22:49:00Reason for exam:->left foot pain s/p fallShould this be performed at the bedside?->YesFINAL REPORT History: Back and left foot pain following a fall. FINDINGS: Lumbar spine series, three views: Multiple views of the lumbar spine show moderate vertebral compression deformities in the lumbar spine, of indeterminate age though they appear new since the patient's CT of the abdomen and pelvis performed April 2016. Additional imaging with CT, bone scan or MRI could be performed for further evaluation and characterization. Extensive surgical hardware seen in the lower lumbar spine and lumbosacral junction. Bones are dif fusely osteopenic. Spinal stimulator wires noted in the thoracolumbar area. Para spinal soft tissues are otherwise unremarkable. Left foot series, three views: M ultiple views of the left foot show diffuse osteopenia. There is solid bony fusi on of the tibiotalar joint and hindfoot. A single surgical screw is present. The re are no visible fractures or acute bone abnormalities identified. Surrounding soft tissues are unremarkable. IMPRESSION: 1. Multiple lumbar vertebral compress ion fractures of indeterminate age. Additional imaging could be performed for fu rther evaluation and characterization if clinically indicated. 2. Postsurgical c hanges in the lower lumbar spine and lumbosacral junction. 3. Diffuse osteopenia and solid bony fusion of the left hindfoot. No acute fractures or bone abnormal ities are identified. Signed: rIma Barron MDReport Verified Date/Time: 2016 22:49:26 Reading Location: [facility] C0[facility] Consult Reading Room [facility] signed by: IRMA BARRON M.D. on 03/11/2017 10:49 PM RAD, SPINE, LUMBAR, 2 OR 3 [id number] 22:49:00Reason for exam:->back pain s/p fallShould this be performed at the bedside?->YesFINAL REPORT History: Back and left foot pain following a fall. FINDINGS: Lumbar spine series, three views: Multiple views of the lumbar spine show moderate vertebral compression deformities in the lumbar spine, of indeterminate age though they appear new since the patient's CT of the abdomen and pelvis performed April 2016. Additional imaging with CT, bone scan or MRI could be performed for further evaluation and characterization. Extensive surgical hardware seen in the lower lumbar spine and lumbosacral junction. Bones are diffusely osteopenic. Spinal stimulator wires noted in the thoracolumbar area. Paraspinal soft tissues are otherwise unremarkable. Left foot series, three views: Multiple views of the left foot show diffuse osteopenia. There is solid bony fusion of the tibiotalar joint and hindfoot. A single surgical screw is present. There are no visible fractures or acute bone abnormalities identified. Surrounding soft tissues are unremarkable. IMPRESSION: 1. Multiple lumbar vertebral compression fractures of indeterminate age. Additional imaging could be performed for further evaluation and characterization if clinically indicated. 2. Postsurgical changes in the lower lumbar spine and lumbosacral junction. 3. Diffuse osteopenia and solid bony fusion of the left hindfoot. No acute fractures or bone abnormalities are identified. Signed: Irma Barron MDRyvetteort Verified Date/Time: 03/11/2017 22:49:26 Reading Location: [address] Consult Reading Room , BRAIN, WITHOUT [id number] 22:12:00Reason for exam:->DIZZINESSReason for exam:-> NAUSEAReason for exam:->ALTERED MENTAL STATUSReason for exam:->GENERALIZED WEAKNESS, NOT ASSOCIATED WITH EXTREMITIESReason for exam:->APHASIAWhat is the patient's sedation requirement?->No SedationFINAL REPORT CT, BRAIN, WITHOUT CONTRAST INDICATION: "Confusion/delirium, altered LOC, unexplainedDIZZINESSNAUSEAALTERED MENTAL STATUSGENERALIZED WEAKNESS, NOT ASSOCIATED WITH EXTREMITIESAPHASIA" TECHNIQUE: Noncontrast axial imaging was obtained from the vertex to the skull base. Axial images were reconstructed using a bone algorithm. DOSE REDUCTION: Dose modulation, iterative reconstruction, and/or weight-based adjustment of the mA/kV was utilized to r educe the radiation dose to as low as reasonably achievable. COMPARISON: Head CT 08/19/2015 FINDINGS: Mild to moderate global volume loss with moderate to severe patchy periventricular and subcortical areas of white matter hypoattenuation co nsistent with chronic microvascular ischemic disease.Cerebellar tonsillar ectopi a.No subacute territorial infarction or hyperdense thrombus.No acute intracrania l hemorrhage.No acute hydrocephalus. Intact calvarium.Symmetric globes.The paran francisco sinuses and mastoid air cells are well-aerated. IMPRESSION: No acute intrac ranial abnormality. Signed: Shiv Samson MDReport Verified Date/Time: 2016 22:12:15 Reading Location: [facility] C013 Ortho Consult Reading Room Makenna ctronically signed by: SHIV SAMSON MD on 03/11/2017 10:12 PM
[2019-01-11 14:50] VITALS: BP 135/82
== END | disposition home or self-care (01) ==
LOC: OR 09:33
PROVIDERS: ATTEND Internal Medicine Gastroenterology
DX: Z12.11 Encounter for screening for malignant neoplasm of colon (principal); K26.9 Duodenal ulcer, unspecified as acute or chronic, without hemorrhage or perforation; K29.70 Gastritis, unspecified, without bleeding; K59.00 Constipation, unspecified; K57.30 Diverticulosis of large intestine without perforation or abscess without bleeding; K22.8 Other specified diseases of esophagus; K44.9 Diaphragmatic hernia without obstruction or gangrene; K64.1 Second degree hemorrhoids; Z90.3 Acquired absence of stomach [part of]; I10 Essential (primary) hypertension; M06.9 Rheumatoid arthritis, unspecified; G47.00 Insomnia, unspecified; F32.9 Major depressive disorder, single episode, unspecified; Z01.810 Encounter for preprocedural cardiovascular examination; Z01.812 Encounter for preprocedural laboratory examination; Z86.73 Personal history of transient ischemic attack (TIA), and cerebral infarction without residual deficits; Z86.19 Personal history of other infectious and parasitic diseases
CPT/HCPCS: 36415; 43239; 45378; 80053; 85025; 85610; 85730; 88305; 93005; J1610; J2001; J2270; J2704; 88312